=== PATIENT | male | born 1965 | race Caucasian/White ===

== ENCOUNTER → 2024-01-11 11:13 | Outpatient (CLI) | payer OTHER, MEDICARE, SELFPAY ==
--- NOTE | 2024-01-11 11:19 | DI.MRI.S_ITS ---
PROCEDURE: MR THORACIC SPINE WO CON INDICATIONS: BALANCE AND GAIT PROBLEMS TECHNIQUE: Noncontrast sagittal T1 spine echo and T2 fast spin echo, sagittal STIR, and T2 fast spin echo through the thoracic spine. COMPARISON: None. FINDINGS: Image quality: Dorsal epidural stimulator in the lower thoracic spine creates artifact, limiting assessment of the spinal canal at these levels. Alignment and Curvature: There is normal bony alignment. Bone Marrow: Marrow is of normal overall signal. No acute vertebral body compression fractures. Spinal Cord: Visualized spinal cord is normal in size and signal. Epidural stimulator noted in the dorsal epidural space from T6-T12. Paraspinous Soft Tissues: No paravertebral masses. Miscellaneous: On axial images, central canal and foramina appear widely patent at all scanned levels. IMPRESSION: Dorsal epidural stimulator in the lower thoracic spine creates artifact, limiting assessment. Within the limits of the exam, no evidence of central stenosis or cord injury Approved by: Uriah Reyes M.D. on 01/11/2024 at 17:16
--- NOTE | 2024-01-11 12:05 | DI.MRI.S_ITS ---
PROCEDURE: MR HEAD/BRAIN WO CON INDICATIONS: BALANCE AND GAIT PROBLEMS TECHNIQUE: Noncontrast axial T1 spin echo, axial T2 fast spin echo, sagittal and axial FLAIR, coronal T2 fast spin echo, axial gradient echo, axial diffusion and ADC through the brain. COMPARISON: None. FINDINGS: CSF Spaces: Basal cisterns are patent. No extra-axial fluid collections. Ventricles are normal in size and shape. Brain: No intracranial masses or hemorrhage. Rehman/white matter interface is normal. Brainstem appears normal. Diffusion-weighted sequence is unremarkable without evidence of acute infarct. Normal intravascular flow voids are present. Skull and face: Calvarium has normal marrow signal. Orbits appear normal. Sinuses: Sinuses and mastoids are clear. IMPRESSION: Unremarkable MRI of the brain. No evidence of acute infarct, hemorrhage or mass lesion Approved by: Uriah Reyes M.D. on 01/11/2024 at 16:01
--- NOTE | 2024-01-11 12:05 | DI.MRI.S_ITS ---
PROCEDURE: MR CERVICAL SPINE WO CON INDICATIONS: BALANCE AND GAIT PROBLEMS TECHNIQUE: Noncontrast sagittal T1 spin echo and T2 fast spin echo, sagittal STIR, foraminal oblique sagittal T2 fast spin echo, and axial gradient echo or T2 fast spin echo through the cervical spine. COMPARISON: None. FINDINGS: Image quality: Excellent. Alignment and Curvature: There is normal bony alignment. Bone Marrow: Marrow demonstrates normal overall signal. Spinal Cord: Increased signal within the left clarence cord at the C5-6 level associated with severe central stenosis Paraspinous Soft Tissues: No paravertebral masses. Prevertebral soft tissues are normal in thickness. C2-C3: Normal appearance. C3-C4: Disc height is preserved. Posterior disc osteophyte complex results in idly-fo-mthwrmmz central stenosis with flattening the ventral cord. No foraminal stenosis C4-C5: Disc height is preserved. Posterior disc osteophyte complex with moderate central stenosis flattens the ventral surface of the cord. Mild right and no left foraminal stenosis. C5-C6: Disc height is preserved. Arthropathy results in moderate left and mild right foraminal stenosis. Of note, there is increased signal within the flattened right clarence cord this level. C6-C7: Disc space narrowing posterior disc osteophyte complex and arthropathy. Severe central stenosis with flattening of the ventral cord. Moderate left and no right foraminal stenosis C7-T1: Disc space is preserved. No central foraminal stenosis IMPRESSION: Increased signal within the left clarence cord at C5-6 probably reflects myelomalacia from chronic severe stenosis at this level. Additional levels of significant stenosis as detailed above. Approved by: Uriah Reyes M.D. on 01/11/2024 at 17:03
== END ==
PROVIDERS: PCP Family Medicine; Referring Provider Neurological Surgery; Visit Provider Neurological Surgery
DX: M48.02 Spinal stenosis, cervical region (principal); R26.89 Other abnormalities of gait and mobility; Z96.82 Presence of neurostimulator
CPT/HCPCS: 70551; 72141; 72146

== ENCOUNTER → 2024-05-27 07:39 | Outpatient (CLI) | payer OTHER, MEDICARE, SELFPAY ==
--- NOTE | 2024-05-27 07:40 | DI.MRI.S_ITS ---
PROCEDURE: MR LUMBAR SPINE WO/W CON INDICATIONS: LUMBOSACRAL RADICULOPATHY TECHNIQUE: Noncontrast sagittal T1 spin echo and T2 fast spin echo, sagittal STIR, axial T1 and T2 fast spin echo through the lumbar spine. In cases with scoliosis, additional coronal T2 fast spin echo may be performed. After the administration of contrast, sagittal and axial T1 spin echo with fat saturation through the lumbar spine. COMPARISON: , , MR THORACIC SPINE WO CON, 01/11/2024, 13:23. FINDINGS: Image quality: Excellent. Alignment and curvature: There is normal bony alignment remote posterior lateral alfie and pedicle screw fixation and posterior laminectomy at L5-S1. Marrow: Marrow is of normal overall signal. No acute vertebral body compression fractures. No suspicious marrow enhancement. Spinal cord: Conus medullaris terminates at the L1-L2 level. Visualized spinal cord demonstrates normal signal, without suspicious enhancement. Dorsal column stimulator heads in the cephalad entering at the level of L1-L2, resulting in some artifact posteriorly at T12-L1. Paraspinous soft tissues: No paravertebral masses or abnormal enhancement. T12-L1: Dorsal column stimulator. Disc bulge. No canal stenosis or significant foraminal stenosis. L1-L2: Disc bulge. Facet hypertrophy. Borderline canal stenosis. Mild bilateral foraminal stenosis. L2-L3: Disc bulge. Mild facet hypertrophy. Mild canal stenosis. No significant foraminal stenosis. L3-L4: Disc bulge. Facet and ligament hypertrophy. Moderate canal stenosis. Sncn-qb-dzhdzhni bilateral foraminal stenosis. L4-L5: Disc bulge. Facet hypertrophy. Moderate canal stenosis. Mild bilateral foraminal stenosis. L5-S1: Posterior decompression and posterior lateral fusion. No canal stenosis. Axial imaging adequately evaluates the foramina. [id number] right foraminal narrowing. No significant left foraminal narrowing. IMPRESSION: 1. Remote posterior decompressive laminectomy and posterior lateral fusion at L5-S1 with expected findings at the postsurgical level. 2. Multilevel underlying facet arthropathy. 3. Canal stenosis is borderline at L1-L2, mild at L2-L3, moderate at L3-L4, and moderate at L4-L5. Dictated by: Hal Ordonez M.D. on 05/29/2024 at 11:40 Approved by: Hal Ordonez M.D. on 05/29/2024 at 11:48
== END ==
PROVIDERS: PCP Family Medicine; Referring Provider Family Medicine; Visit Provider Family Medicine
DX: M54.17 Radiculopathy, lumbosacral region (principal); M47.816 Spondylosis without myelopathy or radiculopathy, lumbar region; M48.061 Spinal stenosis, lumbar region without neurogenic claudication; Z98.1 Arthrodesis status
CPT/HCPCS: 72158; A9579

== ENCOUNTER → 2024-06-30 16:48 | Outpatient (CLI) | payer OTHER, MEDICARE, SELFPAY ==
--- NOTE | 2024-06-30 16:49 | DI.MRI.S_ITS ---
PROCEDURE: MR HEAD/BRAIN WO CON INDICATIONS: DIZZINESS,DYSGEUSIA,DYSOSMIA TECHNIQUE: Noncontrast axial T1 spin echo, axial T2 fast spin echo, sagittal and axial FLAIR, coronal T2 fast spin echo, axial gradient echo, axial diffusion and ADC through the brain. COMPARISON: [facility], MR, MR HEAD/BRAIN WO CON, 01/11/2024, 11:42. FINDINGS: CSF Spaces: Basal cisterns are patent. No extra-axial fluid collections. Ventricles are normal in size and shape. Brain: No intracranial masses or hemorrhage. Rehman/white matter interface is normal. Brainstem appears normal. Diffusion-weighted sequence is unremarkable without evidence of acute infarct. Normal intravascular flow voids are present. Skull and face: Calvarium has normal marrow signal. Orbits appear normal. Sinuses: Sinuses and mastoids are clear. IMPRESSION: Normal MRI of the brain without contrast Approved by: Uriah Reyes M.D. on 07/03/2024 at 17:33
== END ==
PROVIDERS: PCP Family Medicine; Referring Provider Family Medicine; Visit Provider Family Medicine
DX: R42 Dizziness and giddiness (principal); R43.2 Parageusia; R43.9 Unspecified disturbances of smell and taste
CPT/HCPCS: 70551